=== PATIENT | female | born 1990 | race Caucasian/White ===

== ENCOUNTER 2021-04-21 14:09 | Emergency (ER) | payer MEDICAID ==
[~2021-04-21] VITALS: Ht 160 cm; Wt 66.7 kg
[~2021-04-21 14:09] MED LIST: CALC667C12 PO; CEPH250C16 PO; CLIN300C2 PO; FERR-252 PO; FOLI1TAB19 PO; IBUP-974 PO; PREN-152 PO
[2021-04-21 14:45] VITALS: BP 99/65
--- NOTE | 2021-04-21 14:50 | NUR ---
ermd assessed pt in triage
--- NOTE | 2021-04-21 14:58 | NUR ---
steven swabbed at this time. given to tal johnson
[2021-04-21] MEDS ORDERED: ROBAC PO (17:01)
[2021-04-21 17:26] VITALS: BP 99/65
--- NOTE | 2021-04-21 17:27 | NUR ---
Patient discharged with v/s stable. Written and verbal after care instructions given and explained. Patient alert, oriented and verbalized understanding of instructions. Ambulatory with steady gait. All questions addressed prior to discharge. ID band removed. Patient advised to follow up with PMD. Rx of codeine phosphate/guaifenesi (sent) given. Patient educated on indication of medication including possible reaction and side effects. Opportunity to ask questions provided and answered.
== END 2021-04-21 17:27 | disposition home or self-care (01) ==
LOC: MED 14:09
DX: J20.9 Acute bronchitis, unspecified (principal); Z20.822 Contact with and (suspected) exposure to COVID-19; Z79.899 Other long term (current) drug therapy
CPT/HCPCS: 71045; 99284

== ENCOUNTER 2021-05-08 17:20 | Emergency (ER) | payer MEDICAID ==
[~2021-05-08] VITALS: Ht 160 cm; Wt 64.4 kg
[~2021-05-08 17:20] MED LIST changes: +ROBAC PO
[2021-05-08 17:56] VITALS: BP 105/81
--- NOTE | 2021-05-08 20:55 | NUR ---
PT EVALUATED BY DR. HWANG.
[2021-05-08 21:26] VITALS: BP 122/78
[2021-05-08] MEDS ORDERED: ALBU0.0912 INH (21:36)
== END 2021-05-08 21:26 | disposition home or self-care (01) ==
LOC: MED 17:20
DX: R06.02 Shortness of breath (principal); R07.9 Chest pain, unspecified; Z11.52 Encounter for screening for COVID-19; Z79.899 Other long term (current) drug therapy
CPT/HCPCS: 99283; U0003

== ENCOUNTER 2021-09-18 01:01 | Emergency (ER) | payer MEDICAID ==
[~2021-09-18] VITALS: Ht 160 cm; Wt 55.8 kg
[~2021-09-18 01:01] MED LIST changes: +ALBU0.0912 INH
[2021-09-18 01:57] VITALS: BP 99/78
--- NOTE | 2021-09-18 03:00 | NUR ---
PATIENT IRRITATED WITH EYE SIGHT AND COMPLAINING THAT SHE IS UNABLE TO DRIVE HOME IN CURRENT STATE EVEN AFTER MEDICINE ADMINISTERED VIA OP. WILL CONTINUE TO PROVIDE REASSESSMENTS FOR TORADOL AND BENEDRYL.
[2021-09-18] MEDS ORDERED: diphenhydrAMINE 50 MG CAP PO ONE (03:05)
[2021-09-18] MEDS ORDERED: PROCHLORPERAZINE 10 MG/2 ML VIAL IM ONE (03:05)
[2021-09-18] MEDS ORDERED: TETRACAINE HCL/PF 0.5% OPTH 4 ML BTL OP ONE (03:05)
[2021-09-18] MEDS ORDERED: KETOROLAC 30 MG/ML VIAL IM ONE (03:05)
[2021-09-18] MEDS ORDERED: TOMOMETER 1 DEV DEV MC ONE (03:40)
[2021-09-18] MEDS ORDERED: KETOROLAC 30 MG/ML VIAL ONE (04:13)
--- NOTE | 2021-09-18 04:30 | NUR ---
PATIENT SLEEPING. NO INDICATION OF PAIN.
[2021-09-18] MEDS ORDERED: POLY10SO OP (05:12)
[2021-09-18] MEDS ORDERED: IBUP-2213 PO (05:12)
[2021-09-18] MEDS ORDERED: ONDA-188 SL (05:12)
--- NOTE | 2021-09-18 05:40 | NUR ---
PATIENT EVALED AND DISCHARGED BY ER MD. STILES. BELONGINGS RECONCILED. PATIENT AMBULATORY WITH STEADY GAIT.
[2021-09-18 05:42] VITALS: BP 106/82
== END 2021-09-18 05:40 | disposition home or self-care (01) ==
LOC: MED 01:01
DX: H10.9 Unspecified conjunctivitis (principal); B96.89 Other specified bacterial agents as the cause of diseases classified elsewhere; G43.909 Migraine, unspecified, not intractable, without status migrainosus; Z79.899 Other long term (current) drug therapy
CPT/HCPCS: 96372; 99284; J0780; J1885; Q0163

== ENCOUNTER 2022-07-18 02:18 | Emergency (ER) | payer MEDICAID ==
[~2022-07-18] VITALS: Ht 160 cm; Wt 59.0 kg
[~2022-07-18 02:18] MED LIST changes: +IBUP-2213 PO; +ONDA-188 SL; +POLY10SO OP
[2022-07-18 02:25] VITALS: BP 110/79
--- NOTE | 2022-07-18 02:28 | NUR ---
TO LOBBY A/W BED AMBULATORY
--- NOTE | 2022-07-18 03:30 | NUR ---
PT TO [facility]
--- NOTE | 2022-07-18 04:25 | NUR ---
SWABS FOR FREDDIE, INFLUENZA SENT TO LAB
[2022-07-18] MEDS ORDERED: BENZ-300 PO (05:24)
[2022-07-18] MEDS ORDERED: BENZ-379 PO (05:24)
[2022-07-18] MEDS ORDERED: IBUP-1842 PO (05:24)
[2022-07-18 05:29] VITALS: BP 110/79
--- NOTE | 2022-07-18 05:29 | NUR ---
Patient discharged with v/s stable. Written and verbal after care instructions given and explained. Patient alert, oriented and verbalized understanding of instructions. Ambulatory with steady gait. All questions addressed prior to discharge. ID band removed. Patient advised to follow up with PMD. Rx of CEPACOL, BENZONATATE, MOTRIN given. Patient educated on indication of medication including possible reaction and side effects. Opportunity to ask questions provided and answered.
== END 2022-07-18 05:29 | disposition home or self-care (01) ==
LOC: MED 02:18
DX: J10.1 Influenza due to other identified influenza virus with other respiratory manifestations (principal); Z20.822 Contact with and (suspected) exposure to COVID-19; Z79.1 Long term (current) use of non-steroidal anti-inflammatories (NSAID); Z79.899 Other long term (current) drug therapy; Z79.2 Long term (current) use of antibiotics
CPT/HCPCS: 93005; 99284

== ENCOUNTER 2022-11-11 15:23 | Emergency (ER) | payer MEDICAID ==
[~2022-11-11] VITALS: Ht 160 cm; Wt 62.1 kg
[~2022-11-11 15:23] MED LIST changes: +BENZ-300 PO; +BENZ-379 PO; +IBUP-1842 PO
[2022-11-11 15:49] VITALS: BP 104/64; PULSE 81; RESP 18; TEMP 98; O2SAT 99
[2022-11-11 16:32] LABS: BASOPHILS % (AUTO) 0.4 % (0.0-2.0); EOSINOPHILS # (AUTO) 0.1 K/uL (0-0.4); EOSINOPHILS % (AUTO) 0.6 % (0.0-4.0); HEMATOCRIT 39.8 % (36-48); HEMOGLOBIN 13.3 g/dL (12.0-16.0); LYMPHOCYTES # (AUTO) 2.5 K/uL (2.5-16.5); LYMPHOCYTES % (AUTO) 24.4 % (20.5-51.1); MEAN CORPUSCULAR HEMOGLOBIN 29 pg (27-31); MEAN CORPUSCULAR HGB CONC 33 g/dL (33-37); MEAN CORPUSCULAR VOLUME 85.9 fL (80-94); MONOCYTES # (AUTO) 0.6 K/uL (0.8-1.0); MONOCYTES % (AUTO) 5.3 % (1.7-9.3); NEUTROPHILS # (AUTO) 7.2 K/uL (1.8-7.7); NEUTROPHILS % (AUTO) 69.3 % (42.2-75.2); PLATELET COUNT (AUTO) 194 K/uL (140-450); RED BLOOD CELL COUNT(AUTO) 4.63 MIL/uL (4.20-5.40); RED CELL DISTRIBUTION WIDTH 13.5 % (11.6-13.7); WHITE BLOOD COUNT (AUTO) 10.4 K/uL (4.8-10.8)
[2022-11-11 16:58] LABS: ANION GAP 14.4 (8-16); CARBON DIOXIDE 23.2 mmol/L (21-32); CREATININE 0.7 mg/dL (0.6-1.3); POTASSIUM 3.6 mmol/L (3.5-5.1); TOTAL BILIRUBIN 0.4 mg/dL (0.0-1.0)
--- NOTE | 2022-11-11 19:20 | NUR ---
Patient discharged with out d/c instructions. All questions addressed prior to discharge, by Dr Urbano.all results back and noted by ERMD and for d/c
--- NOTE | 2022-11-11 19:51 | NUR ---
Theodora mcmahon in [facility] - 11/11/22 at 1955 by GABY Seen and evaluated by CITLALY
--- NOTE | 2022-11-11 19:52 | NUR ---
Note salome in EDM - 11/11/22 at 1955 by [email or web address] Patient discharged with v/s stable. Written and verbal after care instructions given and explained. New rx buspirone. Patient verbalized understanding. Ambulatory with steady gait. All questions addressed prior to discharge. Advised to follow up with PMD.
== END 2022-11-11 19:20 | disposition home or self-care (01) ==
LOC: MED 15:23
DX: N91.2 Amenorrhea, unspecified (principal); Z79.899 Other long term (current) drug therapy; Z79.1 Long term (current) use of non-steroidal anti-inflammatories (NSAID); Z79.2 Long term (current) use of antibiotics
CPT/HCPCS: 36415; 74176; 76856; 80053; 81002; 81025; 83690; 85025; 93976; 99284; Q0092

== ENCOUNTER 2023-06-01 21:16 | Emergency (ER) | payer MEDICAID, OTHER ==
[~2023-06-01] VITALS: Ht 160 cm; Wt 63.0 kg
[2023-06-01 21:29] VITALS: BP 112/74; PULSE 97; RESP 16; TEMP 97.6; O2SAT 98
[2023-06-02 00:02] VITALS: BP 116/76; PULSE 96; RESP 17; TEMP 98; O2SAT 98
[2023-06-02] MEDS: HYDROmorphone PFS 2 MG/ML SYR IVP ONE (00:20)
[2023-06-02] MEDS: LIDOCAINE 2% 1000 MG/50 ML VIAL INJ ONE (00:29)
[2023-06-02] MEDS ORDERED: METR-435 PO (00:46)
[2023-06-02] MEDS ORDERED: NAPR-54 PO (00:46)
== END 2023-06-02 00:50 | disposition home or self-care (01) ==
LOC: MED 21:16
DX: N75.0 Cyst of Bartholin's gland (principal); Z79.1 Long term (current) use of non-steroidal anti-inflammatories (NSAID); Z79.899 Other long term (current) drug therapy; Z79.2 Long term (current) use of antibiotics
CPT/HCPCS: 56420; 96374; 99284; J1170; J2001

== ENCOUNTER 2023-08-03 09:58 | Emergency (ER) | payer OTHER ==
[~2023-08-03] VITALS: Ht 160 cm; Wt 57.6 kg
[~2023-08-03 09:58] MED LIST changes: +METR-435 PO; +NAPR-54 PO
[2023-08-03 10:11] VITALS: BP 108/68; PULSE 93; RESP 18; TEMP 98.1; O2SAT 100
[2023-08-03 11:09] LABS: APPEARANCE,URINE CLEAR (CLEAR); BILIRUBIN,URINE NEGATIVE (NEGATIVE); BLOOD, URINE 2+ (NEGATIVE); COLOR,URINE YELLOW (YELLOW); LEUKOCYTE ESTERASE ,URINE NEGATIVE (NEGATIVE); NITRITE, URINE NEGATIVE (NEGATIVE); PROTEIN,URINE TRACE (NEGATIVE); UGLUCOSE NEGATIVE (NEGATIVE); UROBILINOGEN,URINE 0.2 EU/dL (0.2 - 1)
[2023-08-03 11:19] LABS: WBC,URINE 0-5 /HPF (0-5)
[2023-08-03 11:20] LABS: BACTERIA,URINE FEW /HPF (None Seen); MUCUS,URINE None Seen /LPF (None Seen); SQUAMOUS EPITHELIAL CELL,UR 0-3 (FEW) /LPF (0-3 (FEW)); TRICHOMONAS,URINE None Seen /HPF (None Seen); WHITE BLOOD CELL CASTS,URINE None Seen /LPF (None Seen); YEAST,URINE None Seen /HPF (None Seen)
[2023-08-03] MEDS ORDERED: CLIN300C2 PO (11:26)
[2023-08-03] MEDS ORDERED: CEFI400C4 PO (11:26)
== END 2023-08-03 11:45 | disposition home or self-care (01) ==
LOC: MED 09:58
DX: J06.9 Acute upper respiratory infection, unspecified (principal); J32.9 Chronic sinusitis, unspecified; N75.0 Cyst of Bartholin's gland; Z79.899 Other long term (current) drug therapy
CPT/HCPCS: 81001; 81025; 99284

== ENCOUNTER 2023-09-26 09:08 | Emergency (ER) | payer OTHER ==
[~2023-09-26] VITALS: Ht 160 cm; Wt 63.0 kg
[~2023-09-26 09:08] MED LIST changes: +CEFI400C4 PO; +NAPR-337 PO; -NAPR-54 PO
[2023-09-26 09:43] VITALS: BP 111/65; PULSE 86; RESP 16; TEMP 97.8; O2SAT 99
[2023-09-26] MEDS ORDERED: MECLIZINE 25 MG TAB ONE (11:11)
[2023-09-26] MEDS ORDERED: KETOROLAC 60 MG/2 ML VIAL IM ONE (11:12)
[2023-09-26] MEDS: MECLIZINE 25 MG TAB PO ONE (11:14)
[2023-09-26] MEDS: KETOROLAC 60 MG/2 ML VIAL IM ONE (11:15)
[2023-09-26] MEDS ORDERED: IBUP-2213 PO (12:02)
[2023-09-26] MEDS ORDERED: MECL-303 PO (12:02)
[2023-09-26] MEDS ORDERED: ONDA8TAB87 PO (12:02)
[2023-09-26 12:25] VITALS: BP 121/62; PULSE 78; RESP 16; TEMP 97.8; O2SAT 99
== END 2023-09-26 12:25 | disposition home or self-care (01) ==
LOC: MED 09:08
DX: R42 Dizziness and giddiness (principal); R51.9 Headache, unspecified; R11.2 Nausea with vomiting, unspecified; Z79.899 Other long term (current) drug therapy
CPT/HCPCS: 81002; 81025; 96372; 99283; J1885; J8597

== ENCOUNTER 2023-10-30 10:04 | Emergency (ER) | payer OTHER ==
[~2023-10-30] VITALS: Ht 160 cm; Wt 61.7 kg
[~2023-10-30 10:04] MED LIST changes: +MECL-303 PO; +ONDA8TAB87 PO
[2023-10-30 10:35] VITALS: BP 105/63; PULSE 94; RESP 18; TEMP 98.8; O2SAT 98
[2023-10-30] MEDS ORDERED: DOCU-474 PO (12:04)
[2023-10-30] MEDS ORDERED: MAGN296S48 PO (12:04)
[2023-10-30] MEDS ORDERED: MIRABULK PO (12:04)
[2023-10-30 12:18] VITALS: BP 110/64; PULSE 82; RESP 18; TEMP 98.5; O2SAT 99
== END 2023-10-30 12:18 | disposition home or self-care (01) ==
LOC: MED 10:04
DX: K59.00 Constipation, unspecified (principal); Z79.899 Other long term (current) drug therapy
CPT/HCPCS: 74018; 81025; 99283; Q0092